=== PATIENT | male | born 1995 | race Caucasian/White ===

== ENCOUNTER 2017-07-29 20:44 | Emergency (ER) | payer OTHER ==
[~2017-07-29] VITALS: Ht 182.9 cm; Wt 75.0 kg
[2017-07-29 20:59] VITALS: BP 146/69; PULSE 87; RESP 22; O2SAT 100
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
[2017-07-29] MEDS ORDERED: TETANUS/DIPHTHERIA TOXOID ADULT 0.5 ML VIAL IM ONE (21:15)
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
[2017-07-29 21:33] LABS: AUTOMATED NEUTROPHIL # 3.6 TH/MM3 (1.8-7.7); BASOPHIL % 0.3 % (0.0-2.0); EOSINOPHIL # 0.1 TH/MM3 (0-0.4); HEMATOCRIT 49.1 % (39.0-51.0); HEMOGLOBIN 16.9 GM/DL (13.0-17.0); LYMPH % 39.9 % (9.0-44.0); LYMPHOCYTE # 2.7 TH/MM3 (1.0-4.8); MEAN CELL VOLUME 91.2 FL (80.0-100.0); MEAN CORPUSCULAR HEMOGLOBIN 31.4 PG (27.0-34.0); MEAN CORPUSCULAR HGB CONC 34.4 % (32.0-36.0); MEAN PLATELET VOLUME 8.4 FL (7.0-11.0); MONO % 5.7 % (0.0-8.0); MONOCYTE # 0.4 TH/MM3 (0-0.9); NEUT % 53.1 % (16.0-70.0); PLATELET COUNT 231 TH/MM3 (150-450); RED BLOOD COUNT 5.38 MIL/MM3 (4.50-5.90); RED CELL DISTRIBUTION WIDTH 14.3 % (11.6-17.2); WHITE BLOOD COUNT 6.7 TH/MM3 (4.0-11.0)
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
[2017-07-29 21:39] VITALS: TEMP 98.9
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
[2017-07-29 21:45] LABS: ALBUMIN 4.4 GM/DL (3.4-5.0); AST (GOT) 56 U/L (15-37); BICARBONATE 26.1 MEQ/L (21.0-32.0); BLOOD UREA NITROGEN 9 MG/DL (7-18); CALCIUM 9.5 MG/DL (8.5-10.1); CHLORIDE 107 MEQ/L (98-107); CREATININE 0.93 MG/DL (0.60-1.30); GLOMERULAR FILTRATION RATE 100 ML/MIN (>89); GLUCOSE,RANDOM 99 MG/DL (74-106); SODIUM (NA) 145 MEQ/L (136-145)
[2017-07-29 21:46] LABS: ALT (GPT) 59 U/L (12-78)
[2017-07-29 21:48] LABS: ALKALINE PHOSPHATASE 51 U/L (45-117); TOTAL BILIRUBIN ADULT 0.4 MG/DL (0.2-1.0); TOTAL PROTEIN 7.7 GM/DL (6.4-8.2)
[2017-07-29 21:53] LABS: ACETAMINOPHEN LESS THAN 2.0 MCG/ML (10.0-30.0)
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
[2017-07-29] MEDS ORDERED: LORazepam 2 MG TAB PO PRN (22:15)
[2017-07-29] MEDS ORDERED: LORazepam 2 MG/ML VIAL IV PUSH PRN ×4 (22:15)
[2017-07-29] MEDS ORDERED: LORazepam 1 MG TAB PO PRN (22:15)
[2017-07-29] MEDS ORDERED: FLUMAZENIL 0.5 MG/5 ML VIAL IV PUSH PRN (22:15)
[2017-07-30 00:05] VITALS: BP 126/73; PULSE 74; RESP 17; O2SAT 98
[2017-07-30 09:30] VITALS: BP 143/69; PULSE 88; RESP 20
[2017-07-30 18:30] VITALS: BP 123/62; PULSE 51; RESP 20
--- NOTE | 2017-07-31 21:04 | EKG ---
Date Performed: 07/29/2017 Time Performed: 22:32:48 PTAGE: 22 years EKG: Sinus rhythm POSSIBLE LEFT ATRIAL ENLARGEMENT BORDERLINE ECG NO PREVIOUS TRACING DOCTOR: Rika Almanza Interpretating Date/Time 07/31/2017 20:55:20
== END 2017-07-31 02:29 ==
LOC: NEPJ 20:44
DX: F10.129 Alcohol abuse with intoxication, unspecified (principal); S60.221A Contusion of right hand, initial encounter; S09.90XA Unspecified injury of head, initial encounter; R56.9 Unspecified convulsions; W17.89XA Other fall from one level to another, initial encounter; Z23 Encounter for immunization
CPT/HCPCS: 70450; 70486; 72125; 73130; 80053; 80307; 85025; 90471; 90714; 93005; 96374; 99285; J2060